=== PATIENT | male | born 1985 | race Caucasian/White ===

== ENCOUNTER 2018-11-23 05:47 | Day surgery (SDC) | payer OTHER ==
[~2018-11-23] VITALS: Ht 190.5 cm; Wt 113.6 kg
[~2018-11-23 05:47] MED LIST: CeFAZolin 2 GM/DEXTROSE 50 ML IV ONE; MIRT30 PO; RINGERS SOLUTION,LACTATED 1,000 ML IV ONE
[2018-11-23] MEDS: RINGERS SOLUTION,LACTATED 1,000 ML IV ONE (06:38)
[2018-11-23 06:42] LABS: EOSINOPHILS % (AUTO) 1.4 % (1.0-6.0); HEMATOCRIT 45.6 % (41-53); HEMOGLOBIN 15.2 g/dL (13.5-17.5); LYMPHOCYTES # (AUTO) 2.3 K/uL (1.0-4.8); LYMPHOCYTES % (AUTO) 23.6 % (22.0-44.0); MEAN CORPUSCULAR HEMOGLOBIN 29.6 pg (26.0-34.0); MEAN CORPUSCULAR HGB CONC 33.3 G/dL (31.0-37.0); MEAN CORPUSCULAR VOLUME 89 fL (80-100); MONOCYTES # (AUTO) 0.8 K/uL (0.1-1.0); MONOCYTES % (AUTO) 7.7 % (2.0-9.0); NEUTROPHILS # (AUTO) 6.6 K/uL (1.8-7.7); NEUTROPHILS % (AUTO) 66.3 % (40.0-70.0); PLATELET COUNT (AUTO) 290 K/uL (150-450); RED BLOOD CELL COUNT(AUTO) 5.13 MIL/uL (4.50-5.90); RED CELL DISTRIBUTION WIDTH 13.3 % (11.5-14.5)
[2018-11-23] MEDS ORDERED: SODIUM CL IRRIG SOLN BAG 0 ML IRRIG ONE (07:02)
[2018-11-23] MEDS ORDERED: SODIUM CL IRRIG SOLN BAG 3,000 ML IRRIG ONE (07:04)
[2018-11-23] MEDS ORDERED: BUPIVACAINE 0.25%/EPI 1:200,000/PF 10 ML VIAL ONE (07:09)
[2018-11-23 07:31] LABS: ANION GAP 12 mmol/L (8-16); CALCIUM, TOTAL 9.1 mg/dL (8.8-10.5); CARBON DIOXIDE 25 mmol/L (22-29); CHLORIDE 105 mmol/L (98-107); CREATININE 1.24 mg/dL (0.60-1.30); GLOMERULAR FILTR. RATE CALC > 60 mL/min (>60); GLUCOSE,RANDOM 104 mg/dL (70-110); SODIUM SERUM 142 mmol/L (136-145); UREA NITROGEN, BLOOD 19 mg/dL (7-18)
[2018-11-23 07:38] LABS: ALANINE AMINOTRANSFERASE 33 U/L (12-78); ALBUMIN 3.6 g/dL (3.4-5.0); ALKALINE PHOSPHATASE 54 U/L (46-116); ASPARTATE AMINOTRANSFERASE 22 U/L (15-37); BILIRUBIN,TOTAL 0.2 mg/dL (0.1-1.0)
[2018-11-23] MEDS: CeFAZolin 2 GM/DEXTROSE 50 ML IV ONE (08:00)
[2018-11-23] MEDS: BUPIVACAINE 0.25%/EPI 1:200,000/PF 10 ML VIAL ONE (08:45)
[2018-11-23] MEDS ORDERED: FentaNYL CITRATE-PF 100 MCG/2 ML VIAL IVP PRN (10:00)
[2018-11-23] MEDS ORDERED: RINGERS SOLUTION,LACTATED 1,000 ML IV ONE (10:06)
[2018-11-23] MEDS: MEPERIDINE-PF 25 MG/ML VIAL IVP PRN (10:30)
[2018-11-23] MEDS: TRANEXAMIC ACID 1,000 MG in DEXTROSE 5%-WATER 50 ML IV ONE (10:32)
[2018-11-23] MEDS: HYDROmorphone 2 MG/ML SYRINGE IVP PRN (10:34)
[2018-11-23] MEDS ORDERED: CeFAZolin 1 GM/DEXTROSE 50 ML IV ONE (11:41)
[2018-11-23] MEDS: CeFAZolin 1 GM/DEXTROSE 50 ML IV ONE (11:49)
[2018-11-23] MEDS ORDERED: DEXAMETHASONE SOD PHOS 4 MG/ML VIAL IVP ONE (12:00)
[2018-11-23] MEDS ORDERED: SUCCINYLCHOLINE CHLORIDE 20 MG/ML 10 ML VIAL IVP ONE (12:00)
[2018-11-23] MEDS ORDERED: LIDOCAINE/PF 2% 5 ML VIAL INJ ONE (12:00)
[2018-11-23] MEDS ORDERED: PROPOFOL 1% 20 ML VIAL IVP ONE (12:00)
[2018-11-23] MEDS ORDERED: ROCURONIUM BROMIDE 10 MG/ML 5 ML VIAL IVP ONE (12:00)
[2018-11-23] MEDS ORDERED: MORPHINE SULFATE 4 MG/ML SYRINGE IVP ONE (12:00)
[2018-11-23] MEDS ORDERED: ONDANSETRON HCL 4 MG/2 ML VIAL IVP ONE (12:00)
[2018-11-23] MEDS ORDERED: MIDAZOLAM HCL 2 MG/2 ML VIAL IVP ONE (12:00)
[2018-11-23] MEDS ORDERED: FentaNYL CITRATE-PF 100 MCG/2 ML VIAL IVP ONE (12:00)
[2018-11-23] MEDS ORDERED: KETOROLAC TROMETHAMINE 60 MG/2 ML VIAL IM ONE (12:00)
[2018-11-23] MEDS ORDERED: OxyCODONE HCL/ACETAMINOPHEN 10-325 MG TABLET ONE (12:47)
[2018-11-23] MEDS: OxyCODONE HCL/ACETAMINOPHEN 10-325 MG TABLET PO PRN ×2 (12:49)
== END 2018-11-23 13:15 | disposition home or self-care (01) ==
LOC: SURGERY 05:47
PROVIDERS: ATTEND Orthopaedic Surgery
DX: S83.412A Sprain of medial collateral ligament of left knee, initial encounter (principal); M22.42 Chondromalacia patellae, left knee; M23.52 Chronic instability of knee, left knee; G89.18 Other acute postprocedural pain; F43.10 Post-traumatic stress disorder, unspecified; Z87.891 Personal history of nicotine dependence; Z72.89 Other problems related to lifestyle; Z79.899 Other long term (current) drug therapy; Z98.890 Other specified postprocedural states; X58.XXXA Exposure to other specified factors, initial encounter; Y93.89 Activity, other specified; Y92.89 Other specified places as the place of occurrence of the external cause; Y99.8 Other external cause status
CPT/HCPCS: 27418; 27429; 29879; 20610; 36415; 80053; 85025; 85610; 85730; J0330; J0690 ×2; J1100; J1170; J1885; J2250; J2270; J2405; J2704; J3010; J3490 ×4; J7060; J7120